=== PATIENT | female | born 1995 | race Caucasian/White ===

== ENCOUNTER 2019-11-20 22:50 | Emergency (ER) | payer OTHER ==
[~2019-11-20] VITALS: Ht 170.2 cm; Wt 118.0 kg
[~2019-11-20 22:50] MED LIST: DOCU240C31 PO; IBUP-1222 PO; OXYC-302 PO
[2019-11-20] MEDS ORDERED: MORPHINE SULFATE 4 MG/ML, 1ML ONE (23:06)
[2019-11-20] MEDS: MORPHINE SULFATE 4 MG/ML, 1ML IVPush PRN (23:17)
[2019-11-20] MEDS ORDERED: SODIUM CHLORIDE FLUSH 10ML SYR IVF ONE (23:30)
[2019-11-20] MEDS ORDERED: PROPOFOL 10 MG/ML, 20ML ONE (23:40)
[2019-11-20] MEDS ORDERED: FENTANYL PF 100 MCG/2ML ONE (23:45)
[2019-11-20] MEDS ORDERED: ONDANSETRON 2MG/ML, 2ML ONE (23:48)
--- NOTE | 2019-11-20 23:50 | NUR ---
SEDATION TO REDUCE WRIST. AMBU BAG, SUCTION AT BEDSIDE. PT ATTACHED TO ALL MONITORS INCLUDING END TIDAL CO2.
[2019-11-21] MEDS ORDERED: PROPOFOL 10 MG/ML, 20ML IVPush ONE
[2019-11-21] MEDS ORDERED: FENTANYL PF 100 MCG/2ML IVPush ONE
[2019-11-21] MEDS ORDERED: ONDANSETRON 2MG/ML, 2ML IVPush ONE
[2019-11-21] MEDS ORDERED: MORPHINE SULFATE 4 MG/ML, 1ML ONE (00:15)
--- NOTE | 2019-11-21 00:21 | NUR ---
PT MEDICATED WITH FENTYNL AND PROPOFOL, ADMINISTERED BY DR SPEARS. TIME OUT AT 2350, FIRST PROPOFOL GIVEN BY DR SPEARS AT 2354. PROCEDURE COMPLETE AT 0010 AND PT BACK TO BASELINE AT 0015.
[2019-11-21] MEDS: MORPHINE SULFATE 4 MG/ML, 1ML IVPush PRN (00:23)
--- NOTE | 2019-11-21 00:30 | NUR ---
PT TOLERATING PO FLUIDS WELL
--- NOTE | 2019-11-21 00:36 | NUR ---
TOTAL OF 200MG PROPOFOL GIVEN BY DR SPEARS DURING PROCEDURE.
--- NOTE | 2019-11-21 00:40 | NUR ---
SEE PAPER CHART AND WHO SHEET FOR VITALS DURING PROCEDURE
[2019-11-21 00:41] VITALS: BP 146/77
--- NOTE | 2019-11-21 01:00 | NUR ---
pt ambulatory in room with a steady gait. pt safely discharged with significant other.
== END 2019-11-21 01:36 | disposition home or self-care (01) ==
LOC: ED 23:20
DX: S52.591A Other fractures of lower end of right radius, initial encounter for closed fracture (principal); S52.691A Other fracture of lower end of right ulna, initial encounter for closed fracture; W18.39XA Other fall on same level, initial encounter; Y93.73 Activity, racquet and hand sports; Y92.89 Other specified places as the place of occurrence of the external cause; Y99.8 Other external cause status
CPT/HCPCS: 25605; 73100; 73110; 76000; 96374; 96375; 96376; 99152; 99285; J2270; J3010

== ENCOUNTER → 2020-10-19 | Outpatient (CLI) | payer OTHER ==
[~2020-10-19] MED LIST changes: -OXYC-302 PO; +OXYC1TAB14 PO
== END | disposition home or self-care (01) ==
LOC: CFH 10:46
PROVIDERS: ATTEND Nurse Practitioner
DX: S52.572A Other intraarticular fracture of lower end of left radius, initial encounter for closed fracture (principal); X58.XXXA Exposure to other specified factors, initial encounter; Y93.89 Activity, other specified; Y92.89 Other specified places as the place of occurrence of the external cause; Y99.8 Other external cause status